=== PATIENT | male | born 1940 | race Hispanic/Latino ===

== ENCOUNTER 2017-11-28 10:30 | Inpatient (IN) | payer SELFPAY ==
[~2017-11-28] VITALS: Ht 152.4 cm; Wt 70.0 kg
--- NOTE | 2017-11-28 10:50 | NUR ---
PT TAKEN BACK TO WAITING ROOM, BY WC, IN STABLE CONDITION, UNTIL A ROOM IS AVAILABLE FOR TREATMENT. LANGUAGE LINE USED FOR TRIAGE.
--- NOTE | 2017-11-28 11:45 | NUR ---
to room 14 via w/c
[2017-11-28] MEDS ORDERED: CLOTRIMAZOLE10 MG MT (12:04)
[2017-11-28 12:24] LABS: HEMATOCRIT 44.4 % (39.0-50.0); HEMOGLOBIN 15.2 g/dl (14.0-18.0); IMMATURE GRANULOCYTES 0.2 % (0.0-1.0); MEAN CELL VOLUME 91.7 fL CALC (80.0-100.0); MEAN CORPUSCULAR HGB 31.4 pG CALC (26.0-32.0); MEAN CORPUSCULAR HGB CONC 34.2 g/L CALC (32.0-36.0); NEUT# 7.43 thou/uL (1.82-7.42); RED BLOOD COUNT 4.84 mill/uL (4.70-6.10); RED CELL DISTRI WIDTH 15.7 % (11.5-15.5)
--- NOTE | 2017-11-28 12:30 | NUR ---
PT ADVISED OF WAIT TIME FOR LAB RESULTS. CALL LIGHT WITHIN REACH. MD EVALUATING PT.
[2017-11-28 12:41] LABS: ALBUMIN 4.3 g/dL (3.2-5.0); ALKALINE PHOSPHATASE 185 u/l (38-126); ANION GAP 34 (6-22 (CALC)); BILIRUBIN, TOTAL 1.5 mg/dL (0.0-1.4); BUN 15 mg/dL (8-23); BUN/CREATININE RATIO 17 (12-20 (CALC)); CARBON DIOXIDE 13 mmol/l (22-30); CHLORIDE 95 mmol/l (95-108); CREATININE 0.9 mg/dL (0.7-1.3); GFR > 60 ML/MIN (>=60 (CALC)); GFR FOR AFR.AMER. > 60 ML/MIN (>=60 (CALC)); POTASSIUM 4.6 mmol/l (3.5-5.1); SGOT/AST 70 u/l (19-48); SGPT/ALT 154 u/l (11-66); SODIUM 137 mmol/l (137-146); TOTAL PROTEIN 8.2 g/dL (6.3-8.2)
--- NOTE | 2017-11-28 13:45 | NUR ---
PT RESTING ON STRETCHER. NO N/V. IV SITES HEALTHY.
--- NOTE | 2017-11-28 14:53 | NUR ---
SBAR PRINTED TO FLOOR
--- NOTE | 2017-11-28 15:00 | NUR ---
PT STARTED ON INSULIN DRIP GLUCOSE 624. IV SITES HEALTHY. FAMILY AT BEDSIDE.
--- NOTE | 2017-11-28 16:12 | NUR ---
BS DECREASING INSULIN DRIP CONTINUES IV SITES TO LAC AND RW HEALTHY.
--- NOTE | 2017-11-28 18:20 | NUR ---
male pt received to ICU bed 3 in stable condition; no distress noted; monitoring attachments explained and connected; pt settled in bed; admission to be completed per next shift; will continue to monitor
[2017-11-28 18:30] VITALS: BP 151/83
--- NOTE | 2017-11-28 18:31 | NUR ---
accucheck 301; insulin gtt titrated to 3 units/hr; iv patent; will continue to monitor
--- NOTE | 2017-11-28 18:39 | NUR ---
PT TO ICU VIA STRETCHER ON PATIENT CARE COORDINATOR
[2017-11-28 18:45] VITALS: BP 165/78
[2017-11-28 18:49] LABS: POTASSIUM 4.1 mmol/l (3.5-5.1)
[2017-11-28 19:00] VITALS: BP 157/74
[2017-11-28 20:00] VITALS: BP 166/91
--- NOTE | 2017-11-28 20:00 | NUR ---
PT ATTEMPTING TO GET OOB, IS [place]. ASSISTED WITH URINAL AND VOIDING 450ML, BACK TO BED. A/O TO SELF AND . BED ALARM APPLIED TO PREVENT FALLS. NS INFUSING AT KVO, INSULIN GTT AT 3UNITS/HR. ACCUCHECK 279. PT IS [place] SPEAKING ONLY, FAMILY AT BED SIDE STATES PT HAS BEEN VERY THIRSTY AND URINATING COPIOUS AMOUNTS. TEACHING DONE WITH PT AND FAMILY REGARDING DIABETES. PO FLUIDS AND CALL LIGHT IN REACH. WILL CONTINUE TO MONITOR.
[2017-11-28 20:14] LABS: URINE BLOOD DIPSTICK MODERATE (NEGATIVE); URINE COLOR YELLOW; URINE GLUCOSE - DIPSTICK >=1000 mg/dL (NEGATIVE); URINE KETONE >=80 mg/dL (NEGATIVE); URINE LEUK ESTERASE NEGATIVE (NEGATIVE); URINE NITRITE - DIPSTICK NEGATIVE (Negative); URINE PH 5.5 (4.5-8.0); URINE PROTEIN - DIPSTICK TRACE mg/dL (NEG-TRACE); URINE SPECIFIC GRAVITY 1.025; URINE UROBILINOGEN - DIPSTICK 0.2 E.U./dL (0.2)
[2017-11-28 20:39] LABS: URINE CLARITY CLEAR
[2017-11-28 20:41] LABS: URINE BILIRUBIN - DIPSTICK NEGATIVE (NEGATIVE); URINE SQUAMOUS EPITHELIAL CELL FEW EPI/hpf (0-FEW); URINE WBC 0-2 WBC/hpf (0-5)
[2017-11-28 20:42] LABS: URINE BACTERIA RARE hpf; URINE FINE GRAN CAST FEW lpf; URINE YEAST MODERATE hpf
[2017-11-28 21:00] VITALS: BP 134/73
[2017-11-28 21:57] LABS: POTASSIUM 3.4 mmol/l (3.5-5.1)
--- NOTE | 2017-11-28 22:13 | NUR ---
LEVERMIR 25 UNITS ADMINISTERED SQ, TOLERATED WELL. CONTINUES ON INSULIN GTT AT 3UNITS/HOUR. CALL LIGHT IN REACH.
--- NOTE | 2017-11-28 22:25 | NUR ---
ACCUCHECK 219, INSULIN GTT STOPPED AT THIS TIME.
[2017-11-28 23:00] VITALS: BP 135/58
[2017-11-29] VITALS (11 sets, daily range): BP systolic 116–170; BP diastolic 62–94
--- NOTE | 2017-11-29 00:20 | NUR ---
KLOR-CON 40MEQ PO PROVIDED, SWALLOWED WITH SIPS OF WATER WITH NO COMPLICATIONS.
--- NOTE | 2017-11-29 02:44 | NUR ---
RESTING WITH EYES CLOSED, RESPIRATIONS EVEN AND UNLABORED.
--- NOTE | 2017-11-29 04:40 | NUR ---
MORNING BLOOD WORK DRAWN BY TEST EXAMINER AT THIS TIME, TOLERATED WELL.
--- NOTE | 2017-11-29 05:00 | NUR ---
ASSISTED TO STAND ON SIDE OF BED TO USE URINAL, VERY UNSTEADY GAIT, VOIDING 400ML DARK YELLOW URINE, THAN BACK TO BED. CALL LIGHT IN REACH.
[2017-11-29 05:04] LABS: MEAN CELL VOLUME 91.2 fL CALC (80.0-100.0); MEAN CORPUSCULAR HGB 31.6 pG CALC (26.0-32.0); MEAN CORPUSCULAR HGB CONC 34.6 g/L CALC (32.0-36.0); RED BLOOD COUNT 3.96 mill/uL (4.70-6.10); RED CELL DISTRI WIDTH 15.7 % (11.5-15.5)
[2017-11-29 05:15] LABS: ANION GAP 13 (6-22 (CALC)); BUN 13 mg/dL (8-23); BUN/CREATININE RATIO 20 (12-20 (CALC)); CARBON DIOXIDE 23 mmol/l (22-30); CHLORIDE 111 mmol/l (95-108); CREATININE 0.6 mg/dL (0.7-1.3); GFR > 60 ML/MIN (>=60 (CALC)); GFR FOR AFR.AMER. > 60 ML/MIN (>=60 (CALC)); POTASSIUM 3.9 mmol/l (3.5-5.1); SODIUM 143 mmol/l (137-146)
[2017-11-29 05:33] LABS: HEMATOCRIT 36.1 % (39.0-50.0); HEMOGLOBIN 12.5 g/dl (14.0-18.0)
--- NOTE | 2017-11-29 07:00 | NUR ---
pt awake in bed; no distress noted; V SHAI Amin at bedside to interpret; pt offers no complaints; assessment completed at this time; pt alert and oriented; complaints in "little" pain to throat; no n/v noted; white patches/ spots noted to tongue; resp even and unlabored; lungs clear; skin color wnl; ra; hr reg; strong pulses; no edema noted; sr on monitor; bilat deepa hose intact; abd soft/distended with bs present; no bm noted per staff writer; no urine to inspect at this time; urinal at bedside; #20 in lac/ #20 in rw flushed and patent; no redness or edema noted at sites; am accucheck 175; am meds/ plan of care explained; bed alarm active for pt safety; call light within reach; will continue to monitor
--- NOTE | 2017-11-29 08:03 | NUR ---
pt awake in bed; no distress noted; sr on monitor; iv intact; eating breakfast; RANDY Borges at bedside to interpret; call light witin reach; will continue to monitor
--- NOTE | 2017-11-29 09:03 | NUR ---
Dr Obrien at bedside to discuss plan of care
[2017-11-29] MEDS ORDERED: OMEPRAZOLE20 M2 PO (09:25)
[2017-11-29] MEDS ORDERED: COMPAZINE5 MG/TAB PO (09:25)
--- NOTE | 2017-11-29 10:10 | NUR ---
awake in bed; spouse present at bedside; no distress noted; pt offers no complaints; iv's intact; sr on monitor; urinal emptied for 375cc dark yellow urine; lungs coarse with faint wheezing; call light within reach; will continue to monitor
--- NOTE | 2017-11-29 11:56 | NUR ---
pt awake in bed; no distress noted; mutiple family members at bedside; iv intact; no redness or edema noted at site; sr on monitor; pt denies needs/ offers no complaints; bed alarm active for pt safety; call light within reach; will continue to monitor
--- NOTE | 2017-11-29 14:30 | NUR ---
resting in bed with eyes closed; spouse at bedside; no distress noted; resp even and unlabored; iv's intact; sr on monitor; call light within reach; will continue to monitor
--- NOTE | 2017-11-29 15:52 | NUR ---
awake; RANDY Carmichael at bedside to interpret; pt offers no complaints; denies pain; iv intact; no redness or edema noted at sites; spouse at bedside; sr on monitor; bed alarm active; call light within reach; will continue to monitor
--- NOTE | 2017-11-29 18:11 | NUR ---
awake; spouse at bedside; no distress noted; pt offers no complaints; iv's intact; no redness or edema noted at site; sr on monitor; denies needs; bed in lowest position; call light within reach
--- NOTE | 2017-11-29 19:28 | NUR ---
PT IN [place] A/O X3, IS [place] AND [place] SPEAKING ONLY. RESPIRATIONS EVEN AND UNLABORED ON RA. ADMITS TO PAIN TO TOUNGUE AND MOUTH HAS DECREASED SINCE YESTERDAY DUE TO NYSTATIN. FAMILY AT BED SIDE, TEACHING DONE WITH FAMILY AND PT REGARDING DIABETES, DIET AND FOLLOWING UP WITH PCP WHEN DISCHARGED, THEY VOICES UNDERSTANDING.
--- NOTE | 2017-11-29 22:27 | NUR ---
SETTING OFF BED ALARM, ASSISTED TO STAND ON SIDE OF BED TO USE URINAL, VOIDING 175ML CLEAR YELLOW URINE, BACK TO BED. CALL LIGHT IN REACH.
[2017-11-30] VITALS (10 sets, daily range): BP systolic 106–172; BP diastolic 61–97
--- NOTE | 2017-11-30 00:46 | NUR ---
RESTING WITH EYES CLOSED, RESPIRATIONS EVEN AND UNLABORED, CALL LIGHT IN REACH, BED ALARM IN PLACE.
[2017-11-30 05:12] LABS: HEMATOCRIT 40.9 % (39.0-50.0); HEMOGLOBIN 14.3 g/dl (14.0-18.0); MEAN CELL VOLUME 90.9 fL CALC (80.0-100.0); MEAN CORPUSCULAR HGB 31.8 pG CALC (26.0-32.0); RED BLOOD COUNT 4.5 mill/uL (4.70-6.10); RED CELL DISTRI WIDTH 15.4 % (11.5-15.5)
[2017-11-30 05:30] LABS: BUN 10 mg/dL (8-23); BUN/CREATININE RATIO 16 (12-20 (CALC)); CALCULATED LDLCHOLESTEROL 51 mg/dL (62-129 (CALC)); CARBON DIOXIDE 25 mmol/l (22-30); CHLORIDE 104 mmol/l (95-108); CHOLESTEROL HDL RATIO 4.1 (<4.4 (CALC)); CREATININE 0.6 mg/dL (0.7-1.3); GFR > 60 ML/MIN (>=60 (CALC)); GFR FOR AFR.AMER. > 60 ML/MIN (>=60 (CALC)); HDL CHOLESTEROL 25 mg/dL (>=40); SODIUM 141 mmol/l (137-146); TOTAL CHOLESTEROL 104 mg/dl (0-199); TOTAL TRIGLYCERIDES 137 mg/dl (30-149); VLDL CHOLESTROL 27 mg/dl (0-38 (CALC))
[2017-11-30 05:32] LABS: ANION GAP 15 (6-22 (CALC)); POTASSIUM 2.9 mmol/l (3.5-5.1)
--- NOTE | 2017-11-30 07:18 | NUR ---
pt awake in bed; no distress noted; Paula Garcia CNA in to interpret; assessment completed at this time; pt alert and oriented; admits to headache; will medicate; no n/v noted; resp even and unlabored; lungs coarse with faint exp wheeze; ra; skin color wnl; hr reg; strong pulses; no edema noted; bilat knee high deepa hose intact; sr on monitor; abd soft/distended with bs present; no bm noted per senior medical writer; pt voiding clear dk yellow urine without complication; urinal at bedside; #20 patent to lac/ #20 in rw; both flushed and patent; no redness or edema noted at sites; plan of care/ am meds explained; accucheck 254 this am; bed alarm active for pt safety; call light within reach; will continue to monitor
--- NOTE | 2017-11-30 08:07 | NUR ---
awake in bed; offers no complaints; no distress noted; iv intact; sr on monitor; call light within reach; will continue to monitor
--- NOTE | 2017-11-30 09:00 | NUR ---
Dr Obrien at bedside to assess pt and discuss plan of care; A [place], [employer] at bedside to interpret
--- NOTE | 2017-11-30 10:10 | NUR ---
awake; offers no complaints; denies pain; iv intact; multiple family members at bedside; call light within reach; will continue to monitor
--- NOTE | 2017-11-30 10:50 | NUR ---
oem sales manager at bedside for education on drawing up insulin and injections; family present at bedside to learn as well; A [place], LOW VOLTAGE ELECTRICIAN at bedside to interpret
--- NOTE | 2017-11-30 11:20 | NUR ---
diabetic education/teaching dome; pt able to use lancet to correctly to check blood glucose level; pt able to self administer (insulin drawn up per health science writer) insulin in lower abdomen after much encouragement/ education; spouse at bedside; spouse admits to using insulin and ability to help pt with administration of insulin; accucheck 340; sr on monitor; will continue to monitor
--- NOTE | 2017-11-30 11:41 | NUR ---
Saw pt for insulin administration education. With manager environmental health and safety, Bishop, present, explained process using insulin needle, alcohol prep pad, and sterile water. Asked pt to repeat process. Pt had to be corrected many times and did not demonstrate clear understanding. Family present and expressed understanding/helped correct pt. Provided written instructions in tajik including pictures to pt. also uses insulin at home and verbalized that she will help pt administer insulin at home.
--- NOTE | 2017-11-30 11:43 | NUR ---
awake; sitting on side of bed eating lunch; spouse at bedside; iv intact; sr on monitor; no distress noted; pt offers no complaints; call light within reach; will continue to monitor
--- NOTE | 2017-11-30 14:20 | NUR ---
awake in bed; spouse present at bedside; no distress noted; offers no complaints; iv intact; sr on monitor; call light within reach; will continue to monitor
--- NOTE | 2017-11-30 15:57 | NUR ---
pt awake in bed; no distress noted; offers no complaints; iv intact; spouse present at bedside; sr on monitor; call light within reach; will continue to monitor
--- NOTE | 2017-11-30 17:15 | NUR ---
Dr Obrien at bedside
[2017-11-30] MEDS ORDERED: LISINOPRIL10 MG PO (17:22)
[2017-11-30] MEDS ORDERED: GLIMEPIRIDE2 MG PO (17:22)
[2017-11-30] MEDS ORDERED: METFORMIN500 MG PO (17:22)
--- NOTE | 2017-11-30 18:05 | NUR ---
awake in bed; iv removed; k-dur administered; pt dressed per self; R Iribar at bedside to interpret; discharge instruction to be reviewed when family arrives; will continue to monitor
--- NOTE | 2017-11-30 18:35 | NUR ---
discharged instructions reviewed in detail with pt, pt spouse and daughter in law Uziel Carter at bedside to interpret; diabetic education/teaching performed with family and pt; Jazlyn and spouse admit to understanding instructions; prescriptions provided and family informed to obtained medication/ supplied from [facility];
--- NOTE | 2017-11-30 19:02 | NUR ---
Discharge instructions given. Patient verbalizes understanding of same. Discharged in stable condition via Wheelchair to Home with family. All belongings sent with pt.
== END 2017-11-30 18:35 | disposition home or self-care (01) | DRG 638 ==
LOC: ED 10:30 → ED-I 14:38 → ED 14:48 → ICU 14:49
PROVIDERS: Family Medicine; Nurse Practitioner Family; ADMIT Internal Medicine; ATTEND Internal Medicine
DX: E11.10 Type 2 diabetes mellitus with ketoacidosis without coma (principal); B37.0 Candidal stomatitis; H91.90 Unspecified hearing loss, unspecified ear; I10 Essential (primary) hypertension; K21.9 Gastro-esophageal reflux disease without esophagitis

== ENCOUNTER 2017-12-09 21:45 | Emergency (ER) | payer SELFPAY ==
[~2017-12-09] VITALS: Ht 152.4 cm; Wt 68.4 kg
[~2017-12-09 21:45] MED LIST: CLOTRIMAZOLE10 MG MT; COMPAZINE5 MG/TAB PO; GLIMEPIRIDE2 MG PO; LISINOPRIL10 MG PO; METFORMIN500 MG PO; OMEPRAZOLE20 M2 PO
[2017-12-09] MEDS ORDERED: INSULIN (22:04)
[2017-12-09 23:34] LABS: HEMATOCRIT 43.5 % (39.0-50.0); HEMOGLOBIN 15.3 g/dl (14.0-18.0); IMMATURE GRANULOCYTES 0.2 % (0.0-1.0); MEAN CELL VOLUME 91.6 fL CALC (80.0-100.0); MEAN CORPUSCULAR HGB 32.2 pG CALC (26.0-32.0); MEAN CORPUSCULAR HGB CONC 35.2 g/L CALC (32.0-36.0); NEUT# 3.24 thou/uL (1.82-7.42); RED BLOOD COUNT 4.75 mill/uL (4.70-6.10); RED CELL DISTRI WIDTH 15.3 % (11.5-15.5)
[2017-12-09 23:46] LABS: ALKALINE PHOSPHATASE 207 u/l (38-126); BILIRUBIN, TOTAL 0.7 mg/dL (0.0-1.4); BUN 8 mg/dL (8-23); BUN/CREATININE RATIO 13 (12-20 (CALC)); CARBON DIOXIDE 24 mmol/l (22-30); CHLORIDE 97 mmol/l (95-108); CREATININE 0.7 mg/dL (0.7-1.3); GFR > 60 ML/MIN (>=60 (CALC)); GFR FOR AFR.AMER. > 60 ML/MIN (>=60 (CALC)); SGPT/ALT 423 u/l (11-66); SODIUM 137 mmol/l (137-146)
[2017-12-09 23:55] LABS: MYOGLOBIN 96 ng/mL (0 - 121)
[2017-12-09 23:56] LABS: ANION GAP 20 (6-22 (CALC)); POTASSIUM 4.2 mmol/l (3.5-5.1); SGOT/AST 254 u/l (19-48)
[2017-12-10] MEDS ORDERED: BENADRYL 50MG C50 MG PO (01:01)
[2017-12-10 01:29] VITALS: BP 117/54
== END 2017-12-10 01:29 | disposition home or self-care (01) | DRG 93 ==
LOC: ED 21:45
PROVIDERS: Emergency Medicine
DX: G24.9 Dystonia, unspecified (principal); R74.8 Abnormal levels of other serum enzymes